=== PATIENT | male | born 1930 | race Caucasian/White ===

== ENCOUNTER 2016-10-09 18:06 | Emergency (ER) | payer OTHER, MEDICARE, BC ==
[2016-10-09 18:53] VITALS: BP 172/101
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
[2016-10-09] MEDS ORDERED: Bacitracin Oint 1 GM U/D Packet TOP ONE (19:18)
--- NOTE | 2016-10-10 09:19 | CR ---
Heart size within normal limits. Pulmonary vasculature within normal limits. No focal consolidation. Degenerative Changes of the spine. No pneumothorax.
--- NOTE | 2016-10-10 10:11 | CR ---
No evidence for displaced or fracture.
== END 2016-10-09 21:14 | disposition home or self-care (01) ==
LOC: JP.ED 18:06
DX: S20.219A Contusion of unspecified front wall of thorax, initial encounter (principal); S80.212A Abrasion, left knee, initial encounter; S80.211A Abrasion, right knee, initial encounter; E88.9 Metabolic disorder, unspecified; G63 Polyneuropathy in diseases classified elsewhere; I10 Essential (primary) hypertension; E78.00 Pure hypercholesterolemia, unspecified; J45.909 Unspecified asthma, uncomplicated; F41.9 Anxiety disorder, unspecified; M19.90 Unspecified osteoarthritis, unspecified site; Z91.030 Bee allergy status; Z91.09 Other allergy status, other than to drugs and biological substances; Z79.899 Other long term (current) drug therapy; V87.7XXA Person injured in collision between other specified motor vehicles (traffic), initial encounter
CPT/HCPCS: 36415; 71020; 71020-26; 71120; 71120-26; 80048; 81001; 85027; 93005; 93010; 99283; 99285-25